=== PATIENT | female | born 1975 | race Caucasian/White ===

== ENCOUNTER 2017-03-02 15:33 | Emergency (ER) | payer SELFPAY ==
[2017-03-02] MEDS ORDERED: MORPHINE SULFATE 10 MG/ML INJ IV ONE ×2 (16:04→17:37)
[2017-03-02] MEDS ORDERED: KETOROLAC TROMETHAMINE INJ/PF 30 MG/1 ML SDV IV ONE (16:04)
[2017-03-02] MEDS ORDERED: ONDANSETRON HCL INJ/PF 4 MG/2 ML SDV IV ONE (16:04)
--- NOTE | 2017-03-02 16:12 | ER Document Report ---
ED General - General TRAVEL OUTSIDE OF THE [place] IN LAST 30 DAYS: No <PANKAJ MORSE - Last Filed: 03/02/17 23:27> <BETH LANTIGUA - Last Filed: 03/03/17 09:56> - General Chief Complaint: Back Pain Stated Complaint: BACK PAIN Time Seen by Provider: 03/02/17 15:59 - HPI Notes: Patient is a 41-year-old female with no significant past medical history who presents the ED complaining of left flank pain 4 hours that began suddenly. Patient states that she has not had any issues with her back in the past nor has she had any history of kidney stones. Patient states that the pain is primary to her left flank that radiates around toward the groin. Patient states that she cannot find a comfortable position. Patient states the pain is constant with intermittent increases in her pain. Patient states that she does have some nausea without any vomiting. She has not had any trouble urinating or any issues with her bowel movements. Patient has not been eating or drinking peers of the pain and intermittent nausea. Patient denies any drug allergies, smoking, IV drug use. She denies any previous surgical history or injections into her lower back. She denies any diabetes or cancer history. Denies any headache, fever, neck pain, URI, sore throat, chest pain, palpitations, syncope, cough, shortness of breath, wheeze, dyspnea, abdominal pain, vomiting/diarrhea, melena, hematochezia, urinary retention, dysuria, hematuria, vaginal discharge/odor/bleeding, loss of control of bowel or bladder , numbness/tingling, saddle anesthesia, muscle paralysis/weakness, or rash. ( PANKAJ MORSE) - Related Data Allergies/Adverse Reactions: No Known Allergies Allergy (Unverified 03/02/17 15:34) Past Medical History - Social History Smoking Status: Never Smoker Family History: Reviewed & Not Pertinent <PANKAJ MORSE - Last Filed: 03/02/17 23:27> Review of Systems <PANKAJ MORSE - Last Filed: 03/02/17 23:27> <BETH LANTIGUA - Last Filed: 03/03/17 09:56> - Review of Systems Notes: REVIEW OF SYSTEMS: CONSTITUTIONAL : Denies fever, chills, or sweats. Denies recent illness. EENT: Denies eye, ear, throat, or mouth pain or symptoms. Denies nasal or sinus congestion or discharge. Denies throat, tongue, or mouth swelling or difficulty swallowing. CARDIOVASCULAR: Denies chest pain. Denies palpitations or racing or irregular heart beat. Denies ankle edema. RESPIRATORY: Denies cough, cold, or chest congestion. Denies shortness of breath, difficulty breathing, or wheezing. GASTROINTESTINAL: see hpi. Denies abdominal pain or distention. Denies blood in vomitus, stools, or per rectum. Denies black, tarry stools. Denies constipation. GENITOURINARY: Denies difficulty urinating, painful urination, burning, frequency, blood in urine, or discharge. FEMALE GENITOURINARY: Denies vaginal bleeding, heavy or abnormal periods, irregular periods. Denies vaginal discharge or odor. MUSCULOSKELETAL: see hpi SKIN: Denies rash, lesions or sores. NEUROLOGICAL: Denies confusion or altered mental status. Denies passing out or loss of consciousness. Denies dizziness or lightheadedness. Denies headache. Denies weakness or paralysis or loss of use of either side. Denies problems with gait or speech. Denies sensory loss, numbness, or tingling. Denies seizures. ALL OTHER SYSTEMS REVIEWED AND NEGATIVE. Dictation was performed using [employer] voice recognition software (PANKAJ MORSE) Physical Exam <PANKAJ MORSE - Last Filed: 03/02/17 23:27> <BETH LANTIGUA - Last Filed: 03/03/17 09:56> - Vital signs Vitals: Temp Pulse Resp BP Pulse Ox 97.7 F 120 H 18 172/99 H 96 03/02/17 15:48 03/02/17 15:48 03/02/17 15:48 03/02/17 15:48 03/02/17 15:48 Notes: PHYSICAL EXAMINATION: GENERAL: Well-appearing, well-nourished and in no acute distress. Pt does appear to be uncomfortable and cannot find a comfortable position and hold left flank. HEAD: Atraumatic, normocephalic. EYES: Pupils equal round and reactive to light, extraocular movements intact, sclera anicteric, conjunctiva are normal. ENT: Nares patent and without discharge. oropharynx clear without exudates. No tonsilar hypertrophy or erythema. Moist mucous membranes. NECK: Normal range of motion, supple without lymphadenopathy LUNGS: Breath sounds clear to auscultation bilaterally and equal. No wheezes rales or rhonchi. HEART: Regular rate and rhythm without murmurs, rubs, gallops. ABDOMEN: Soft, nontender, nondistended abdomen. No guarding, no rebound. No masses appreciated. Normal bowel sounds present. No CVA tenderness bilaterally. Back: FROM. Strength 5+/5. No vertebral point tenderness, step-offs, ecchymosis , abrasion, laceration, erythema, or rash. Non-tender to palp of the soft tissue. SLR neg b/l. Pt ambulatory w/o difficulty. Musculoskeletal: FROM to passive/active. Strength 5+/5. No focal deficits. Extremities: No cyanosis, clubbing, or edema b/l. Peripheral pulses 2+. Capillary refill less than 3 seconds. NEUROLOGICAL: Cranial nerves grossly intact. Normal speech, normal gait. Normal sensory, motor exams. reflexes 2+ b/l. PSYCH: Normal mood, normal affect. SKIN: Warm, Dry, normal turgor, no rashes or lesions noted. (PANKAJ MORSE) Course - Laboratory Result Diagrams: 03/02/17 16:04 03/02/17 16:04 <PANKAJ MORSE - Last Filed: 03/02/17 23:27> - Laboratory Result Diagrams: 03/02/17 16:04 03/02/17 16:04 <BETH LANTIGUA - Last Filed: 03/03/17 09:56> - Re-evaluation Re-evalutation: 03/02/17 16:11 Labs ordered imaging ordered fluids, zofran, morphine, and toradol ordered. 03/02/17 18:[address] scan results: punctate stones rt ureter, 7x5mm stone left prox ureter. + 29 WBC's and small leuks on UA with UC pending. Pt was given additional pain medication and ordered Rocephin New vitals ordered [facility]. 03/02/17 19:02 Dr. Klein ([facility]) accepted patient to OR direct. Pt/family in agreement. 03/02/17 20:28 Pt has no new concerns or complaints. Vitals stable. Pt stable for transfer. (PANKAJ MORSE) 03/02/17 20:38 Pt evaluated, noted to be stable , EMS is starting antibiotics (BETH LANTIGUA) - Vital Signs Vital signs: Temp Pulse Resp BP Pulse Ox 97.9 F 114 H 20 150/102 H 97 03/02/17 20:58 03/02/17 20:58 03/02/17 20:58 03/02/17 20:58 03/02/17 20:58 - Laboratory Laboratory results interpreted by me: 03/02/17 03/02/17 03/02/17 16:04 16:04 16:20 WBC 11.8 H MCH 26.6 L Seg Neutrophils % 84.2 H Lymphocytes % 11.0 L Absolute Neutrophils 9.9 H Sodium 146.3 H Glucose 118 H Calcium 10.4 H AST 37 H ALT 58 H Urine Protein 30 H Urine Urobilinogen 2.0 H Ur Leukocyte Esterase SMALL H Discharge <PANKAJ MORSE - Last Filed: 03/02/17 23:27> <BETH LANTIGUA - Last Filed: 03/03/17 09:56> - Discharge Condition: Stable [facility] Referrals: CHATO VALENZUELA MD [Primary Care Provider] - Follow up as needed
[2017-03-02 16:13] LABS: ABSOLUTE EOSINOPHILS # (AUTO) 0.1 10^3/uL (0.0-0.6); ABSOLUTE LYMPHOCYTES (AUTO) 1.3 10^3/uL (0.5-4.7); ABSOLUTE MONOCYTES (AUTO) 0.5 10^3/uL (0.1-1.4); ABSOLUTE NEUT (AUTO) 9.9 10^3/uL (1.7-8.2); BASOPHILS % (AUTO) 0.3 % (0-2); EOSINOPHILS % (AUTO) 0.5 % (0-6); HEMATOCRIT 38.9 % (36.0-47.0); MEAN CORPUSCULAR HEMOGLOBIN 26.6 pg (27.0-33.4); MEAN CORPUSCULAR HGB CONC 33.4 g/dL (32.0-36.0); MEAN CORPUSCULAR VOLUME 80 fl (80-97); PLATELET COUNT 334 10^3/uL (150-450); RED BLOOD COUNT 4.89 10^6/uL (3.72-5.28); RED CELL DISTRIBUTION WIDTH 13.7 % (11.5-14.0); SEGMENTED NEUTROPHILS % (AUTO) 84.2 % (42-78); TOTAL CELLS COUNTED % (AUTO) 100 %; WHITE BLOOD COUNT 11.8 10^3/uL (4.0-10.5)
[2017-03-02] MEDS: NORMAL SALINE 1000 ML 1,000 ML IV PRN ×2 (16:20→17:33)
[2017-03-02 16:33] LABS: ALANINE AMINOTRANSFERASE 58 U/L (9-52); ALBUMIN 4.7 g/dL (3.5-5.0); ALKALINE PHOSPHATASE 65 U/L (38-126); ANION GAP 12 (5-19); ASPARTATE AMINO TRANSFERASE 37 U/L (14-36); BILIRUBIN,DIRECT 0.2 mg/dL (0.0-0.4); BILIRUBIN,TOTAL 0.2 mg/dL (0.2-1.3); BLOOD UREA NITROGEN 14 mg/dL (7-20); CALCIUM 10.4 mg/dL (8.4-10.2); CARBON DIOXIDE 29 mmol/L (22-30); CHLORIDE 105 mmol/L (98-107); GLUCOSE 118 mg/dL (75-110); POTASSIUM 4.4 mmol/L (3.6-5.0); SODIUM 146.3 mmol/L (137-145); TOTAL PROTEIN 7.5 g/dL (6.3-8.2)
[2017-03-02 16:40] LABS: APPEARANCE,URINE CLOUDY; BILIRUBIN,URINE NEGATIVE (NEGATIVE); CALCIUM OXALATE CRYSTALS,URINE MANY /HPF; COLOR,URINE YELLOW; GLUCOSE, URINE NEGATIVE (NEGATIVE); KETONES,URINE NEGATIVE (NEGATIVE); LEUKOCYTE ESTERASE,URINE SMALL (NEGATIVE); NITRITE,URINE NEGATIVE (NEGATIVE); PROTEIN,URINE 30 mg/dL (NEGATIVE); URINE SPECIFIC GRAVITY 1.039
--- NOTE | 2017-03-02 17:46 | RADIOLOGY REPORT (SQ) ---
EXAM DESCRIPTION: CT LTD RENAL STONE PROTOCOL ON COMPLETED DATE/TIME: 03/02/2017 5:36 pm REASON FOR STUDY: left flank pain COMPARISON: None. TECHNIQUE: CT scan of the abdomen and pelvis performed without intravenous or oral contrast. Images reviewed with lung, soft tissue, and bone windows. Reconstructed coronal and sagittal MPR images revi ewed. All images stored on PACS. All CT scanners at this facility use dose modulation, iterative reconstruction, and/or weight based d osing when appropriate to reduce radiation dose to as low as reasonably achievable (ALARA). [facility]: Dose Right [facility]: CareDose [facility]: Dose Right [facility]: Teradose 4D [facility]: Smart Technologies RADIATION DOSE: CT Rad equipment meets quality standard of care and radiation dose reduction techniq ues were employed. CTDIvol: 15.6 mGy. DLP: 902 mGy-cm.mGy. LIMITATIONS: None. FINDINGS: LOWER CHEST: No significant findings. No nodules or infiltrates. NON-CONTRASTED LIVER, SPLEEN, ADRENALS: Evaluation limited by lack of IV contrast. No identified sign ificant masses. Severe diffuse hepatic steatosis with areas of fatty sparing. PANCREAS: No masses. No peripancreatic inflammatory changes. GALLBLADDER: No identified stones by CT criteria. No inflammatory changes to suggest cholecystitis. RIGHT KIDNEY AND URETER: No suspicious masses. Assessment limited by lack of IV contrast. Punctate calculus lower pole. No hydronephrosis or hydroureter. LEFT KIDNEY AND URETER: No suspicious masses. Assessment limited by lack of IV contrast. Multiple p unctate calculi. Mild left hydronephrosis secondary to a 7 x 5 mm calculus within the proximal uret er. AORTA AND RETROPERITONEUM: No aneurysm. No retroperitoneal masses or adenopathy. BOWEL AND PERITONEAL CAVITY: No obvious masses or inflammatory changes. No free fluid. APPENDIX: Normal. PELVIS, BLADDER, AND ABDOMINAL WALL:No abnormal masses. No free fluid. Bladder normal. BONES: No significant findings. OTHER: No other significant finding. IMPRESSION: BILATERAL NEPHROLITHIASIS WITH MILD LEFT HYDRONEPHROSIS SECONDARY TO 7 MM CALCULUS WITHI N THE PROXIMAL URETER. HEPATIC STEATOSIS. COMMENT: Quality ID # [id number]: Final reports with documentation of one or more dose reduction techniques (e.g., Automated exposure control, adjustment of the mA and/or kV according to patient size, use of iterative reconstruction technique) TECHNICAL DOCUMENTATION: JOB ID: [id number] [facility] EHR- All Rights Reserved
[2017-03-02] MEDS ORDERED: NORMAL SALINE 1000 ML 1,000 ML IV PRN (18:24)
[2017-03-02] MEDS ORDERED: CEFTRIAXONE 1 GM/D5W RTU 1 GM/50 ML RTUPB IV ONE (20:00)
[2017-03-02] MEDS ORDERED: CEFTRIAXONE INJ 1000 MG VIAL ONE (20:45)
[2017-03-02 20:59] VITALS: BP 150/102
== END 2017-03-02 21:00 | disposition short-term general hospital (02) ==
LOC: ER 15:33
DX: M54.9 Dorsalgia, unspecified (principal); R10.9 Unspecified abdominal pain; R11.0 Nausea
CPT/HCPCS: 36415; 87086; 84702; 85025; 87088; 80053; 81001; 76380; J1885; J2270; J2405; J7030; J0696

== ENCOUNTER 2017-03-06 23:54 | Emergency (ER) | payer SELFPAY ==
[2017-03-07] MEDS ORDERED: OXYCODONE-ACETAMINOPHEN 5-325 MG TABLET PO ONE ×2 (00:41→05:46)
[2017-03-07] MEDS ORDERED: ONDANSETRON 4 MG TAB.RAPDIS PO ONE (00:41)
[2017-03-07] MEDS ORDERED: KETOROLAC TROMETHAMINE 60 MG/2 ML SDV IM ONE (00:41)
--- NOTE | 2017-03-07 00:43 | ER Document Report ---
ED Medical Screen (RME) - General Chief Complaint: Possible Kidney Stone Stated Complaint: FLANK PAIN Time Seen by Provider: 03/07/17 00:37 Notes: 41-year-old female, chief complaint of severe abdominal pain radiating around to her flank on the left side. She states she had a stent placed on Monday at [facility] for a 7 mm kidney stone, states she was doing well at home until her cat jumped on her abdomen, she reports sharp severe pain since then. She denies vomiting, fever. TRAVEL OUTSIDE OF THE [place] IN LAST 30 DAYS: No - Related Data Allergies/Adverse Reactions: No Known Allergies Allergy (Unverified 03/02/17 15:34) Past Medical History Renal/ Medical History: Denies: Hx Peritoneal Dialysis Physical Exam - Vital signs Vitals: Temp Pulse Resp BP Pulse Ox 98.3 F 121 H 24 H 179/111 H 99 03/07/17 00:27 03/07/17 00:27 03/07/17 00:27 03/07/17 00:27 03/07/17 00:27 - General General appearance: Anxious In distress: Moderate - Patient pacing around, appears to be in pain - Abdominal Tenderness: Other - Very difficult to examine because patient is in pain and cannot hold still Course - Vital Signs Vital signs: Temp Pulse Resp BP Pulse Ox 98.3 F 121 H 24 H 179/111 H 99 03/07/17 00:27 03/07/17 00:27 03/07/17 00:27 03/07/17 00:27 03/07/17 00:27
[2017-03-07 01:24] LABS: ABSOLUTE BASOPHILS # (AUTO) 0.1 10^3/uL (0.0-0.2); ABSOLUTE EOSINOPHILS # (AUTO) 0.1 10^3/uL (0.0-0.6); ABSOLUTE MONOCYTES (AUTO) 0.5 10^3/uL (0.1-1.4); ABSOLUTE NEUT (AUTO) 5.5 10^3/uL (1.7-8.2); BASOPHILS % (AUTO) 0.7 % (0-2); EOSINOPHILS % (AUTO) 1.1 % (0-6); HEMATOCRIT 36.3 % (36.0-47.0); LYMPHOCYTES % (AUTO) 13.6 % (13-45); MEAN CORPUSCULAR VOLUME 79 fl (80-97); MONOCYTES % (AUTO) 6.4 % (3-13); PLATELET COUNT 298 10^3/uL (150-450); RED BLOOD COUNT 4.61 10^6/uL (3.72-5.28); RED CELL DISTRIBUTION WIDTH 13.6 % (11.5-14.0); SEGMENTED NEUTROPHILS % (AUTO) 78.2 % (42-78); TOTAL CELLS COUNTED % (AUTO) 100 %; WHITE BLOOD COUNT 7.1 10^3/uL (4.0-10.5)
[2017-03-07 01:41] LABS: ANION GAP 11 (5-19); BLOOD UREA NITROGEN 16 mg/dL (7-20); CALCIUM 10.1 mg/dL (8.4-10.2); CARBON DIOXIDE 29 mmol/L (22-30); CHLORIDE 105 mmol/L (98-107); GLUCOSE 118 mg/dL (75-110); POTASSIUM 4.2 mmol/L (3.6-5.0); SODIUM 144.9 mmol/L (137-145)
[2017-03-07 01:42] LABS: APPEARANCE,URINE CLOUDY; BILIRUBIN,URINE NEGATIVE (NEGATIVE); COLOR,URINE YELLOW; GLUCOSE, URINE NEGATIVE (NEGATIVE); KETONES,URINE NEGATIVE (NEGATIVE); LEUKOCYTE ESTERASE,URINE SMALL (NEGATIVE); NITRITE,URINE NEGATIVE (NEGATIVE); PROTEIN,URINE 100 mg/dL (NEGATIVE); URINE SPECIFIC GRAVITY 1.021; UROBILINOGEN,URINE NEGATIVE mg/dL (<2.0)
--- NOTE | 2017-03-07 03:33 | RADIOLOGY REPORT (SQ) ---
EXAM DESCRIPTION: ACUTE ABDOMEN SERIES CLINICAL HISTORY: severe sudden abdominal pain COMPARISON: None. FINDINGS: Single view of the chest with 2 views of the abdomen. Cardiomediastinal silhouette has normal size and contour. No consolidation, pneumothorax, pleural effusion. Low lung volumes. No acute osseous abnormalities. 2 views of the abdomen demonstrate left double-J ureteral stent. Air-filled loops of nondilated large and small bowel. No definite free intraperitoneal air. 2 calcifications in the pelvis could represent phleboliths or may represent calcifications within the ureter. No acute osseous abnormalities. IMPRESSION: 1. No acute pulmonary process. 2. Nonobstructive bowel gas pattern. 3. Calcification along the course of the left ureteral stent may represent a ureteral calculus.
--- NOTE | 2017-03-07 04:51 | ER Document Report ---
ED General - General Chief Complaint: Possible Kidney Stone Stated Complaint: FLANK PAIN Time Seen by Provider: 03/07/17 00:37 Notes: Patient is a pleasant 38-year-old female presents with complaint of left-sided flank pain. She does have a ureteral stent that was placed recently. She does watch the left side. She is on antibiotics for a infection. She says today her cat jumped on her stomach after that she had severe pain left side. The pain is now improved. She says that she was prescribed Ultram by her automotive parts counter person however Ultram does not seem to be helping. He was prescribed Ultram because the [place] because of a headache. She denies any fevers. No vomiting. No diarrhea. No other complaints at this time. She has an appointment with her urologist on Monday to have surgery to remove the stent and stone. TRAVEL OUTSIDE OF THE [place] IN LAST 30 DAYS: No - Related Data Allergies/Adverse Reactions: No Known Allergies Allergy (Unverified 03/02/17 15:34) Past Medical History - Social History Smoking Status: Unknown if Ever Smoked Frequency of alcohol use: None Drug Abuse: None Family History: Reviewed & Not Pertinent Patient has suicidal ideation: No Patient has homicidal ideation: No Renal/ Medical History: Denies: Hx Peritoneal Dialysis Review of Systems - Review of Systems Notes: My Normal Review Basic REVIEW OF SYSTEMS: CONSTITUTIONAL : Denies fever, chills, or sweats. Denies recent illness. RESPIRATORY: Denies cough, cold, or chest congestion. Denies shortness of breath, difficulty breathing, or wheezing. GASTROINTESTINAL: Left sided abdominal pain. Denies nausea, vomiting, or diarrhea. GENITOURINARY: Left flank pain. MUSCULOSKELETAL: Denies neck or back pain or joint pain or swelling. SKIN: Denies rash or skin lesions. NEUROLOGICAL: Denies altered mental status or loss of consciousness. Denies headache. Denies weakness or paralysis or loss of use of either side. Denies problems with gait or speech. Denies sensory or motor loss. ALL OTHER SYSTEMS REVIEWED AND NEGATIVE. Physical Exam - Vital signs Vitals: Temp Pulse Resp BP Pulse Ox 98.3 F 121 H 24 H 179/111 H 99 03/07/17 00:27 03/07/17 00:27 03/07/17 00:27 03/07/17 00:27 03/07/17 00:27 - Notes Notes: General Appearance: Well nourished, alert, cooperative, no acute distress, no obvious discomfort. Vitals: reviewed, See vital signs table. Eyes: PERRL, EOMI, Conjuctiva clear Mouth: No decreasd moisture Throat: No tonsillar inflammation, No airway obstruction, No lymphadenopathy Neck: Supple, no neck tenderness, No thyromegaly Lungs: No wheezing, No rales, No rhonci, No accessory muscle use, good air exchange bilaterally. Heart: Normal rate, Regular rythm, No murmur, no rub Abdomen: Normal BS, soft, No rigidity, very mild left-sided abdominal tenderness to palpation. Remainder of abdomen is nontender and very soft. Neck: No tenderness palpation over the back. Extremities: good pulses in all extremities, Skin: warm, dry, appropriate color, no rash Neuro: speech clear, oriented x 3, normal affect, responds appropriately to questions. Course - Re-evaluation Re-evalutation: 03/07/17 07:06 Patient's pain resolved after receiving medications in triage. She looks well. Abdomen is very soft and benign. I do not feel that she needs any further imaging. X-ray of the abdomen did not show any free air. She looks well and has a close follow-up appointment with her urologist this Monday. I strongly encouraged her return to ER immediately if she has worsening pain, vomiting, or fevers. I will prescribe her Percocet as the Ultram is not really helping her pain at home. She did tolerate Percocet well when she received here. Patient encouraged to only take Percocet when the pain is severe. I did talk to her about the risks of sedation and dependency with opiate medications and therefore the only taken when absolutely needed. Patient shows understanding of this will be discharged home. Dictation of this chart was performed using voice recognition software; therefore, there may be some unintended grammatical errors. - Vital Signs Vital signs: Temp Pulse Resp BP Pulse Ox 98.0 F 85 20 145/94 H 97 03/07/17 05:39 03/07/17 05:39 03/07/17 05:39 03/07/17 05:39 03/07/17 05:39 - Laboratory Result Diagrams: 03/07/17 01:10 03/07/17 01:10 Laboratory results interpreted by me: 0103/07/17 03/07/17 00:50 01:10 01:10 MCV 79 L MCH 26.0 L Seg Neutrophils % 78.2 H Glucose 118 H Urine Protein 100 H Urine Blood LARGE H Ur Leukocyte Esterase SMALL H Discharge - Discharge Clinical Impression: Kidney stone on left side Condition: Good Disposition: HOME, SELF-CARE Instructions: Oral Narcotic Medication ([facility]) Additional Instructions: PLease follow up with your urologist on Monday as scheduled. Please stop taking the Tramadol and try the Percocet. Please do not drive or operate machinery when taking the Percocet. Please return to the ER immediately if you have worsneing pain, vomiting, fevers, or feel unwell. Prescriptions: Oxycodone HCl/Acetaminophen [Percocet 5-325 mg Tablet] 1 tab PO Q4H PRN #20 tablet PRN Reason: Forms: Return to Work
[2017-03-07 06:06] VITALS: BP 145/94
== END 2017-03-07 06:00 | disposition home or self-care (01) ==
LOC: ER 23:54
DX: N20.0 Calculus of kidney (principal); B99.9 Unspecified infectious disease; Z98.890 Other specified postprocedural states
CPT/HCPCS: 99284; 96372; 36415; 85025; 81025; 80048; 81001; 74022; J1885; S0119

== ENCOUNTER 2018-11-21 07:25 | Emergency (ER) | payer SELFPAY ==
[2018-11-21 08:46] LABS: ABSOLUTE BASOPHILS # (AUTO) 0.1 10^3/uL (0.0-0.2); ABSOLUTE EOSINOPHILS # (AUTO) 0.1 10^3/uL (0.0-0.6); ABSOLUTE LYMPHOCYTES (AUTO) 1.4 10^3/uL (0.5-4.7); ABSOLUTE MONOCYTES (AUTO) 0.6 10^3/uL (0.1-1.4); ABSOLUTE NEUT (AUTO) 5.2 10^3/uL (1.7-8.2); BASOPHILS % (AUTO) 0.8 % (0-2); EOSINOPHILS % (AUTO) 1.1 % (0-6); HEMOGLOBIN 12.3 g/dL (12.0-15.5); LYMPHOCYTES % (AUTO) 18.8 % (13-45); MEAN CORPUSCULAR HEMOGLOBIN 24.3 pg (27.0-33.4); MEAN CORPUSCULAR HGB CONC 32.3 g/dL (32.0-36.0); MEAN CORPUSCULAR VOLUME 75 fl (80-97); MONOCYTES % (AUTO) 8.1 % (3-13); PLATELET COUNT 357 10^3/uL (150-450); RED BLOOD COUNT 5.05 10^6/uL (3.72-5.28); RED CELL DISTRIBUTION WIDTH 15.6 % (11.5-14.0); SEGMENTED NEUTROPHILS % (AUTO) 71.2 % (42-78); TOTAL CELLS COUNTED % (AUTO) 100 %; WHITE BLOOD COUNT 7.3 10^3/uL (4.0-10.5)
[2018-11-21 08:50] LABS: APPEARANCE,URINE CLEAR; BILIRUBIN,URINE NEGATIVE (NEGATIVE); COLOR,URINE YELLOW; GLUCOSE, URINE NEGATIVE (NEGATIVE); KETONES,URINE NEGATIVE (NEGATIVE); LEUKOCYTE ESTERASE,URINE TRACE (NEGATIVE); NITRITE,URINE NEGATIVE (NEGATIVE); PROTEIN,URINE NEGATIVE (NEGATIVE); URINE SPECIFIC GRAVITY 1.008; UROBILINOGEN,URINE NEGATIVE mg/dL (<2.0)
--- NOTE | 2018-11-21 09:02 | ER Document Report ---
ED General - General Chief Complaint: Flank Pain Stated Complaint: LEFT FLANK PAIN Time Seen by Provider: 11/21/18 09:00 Primary Care Provider: CHATO VALENZUELA MD [Primary Care Provider] - Follow up as needed Mode of Arrival: Ambulatory Information source: Patient Notes: This 43-year-old female with history of kidney stones presents emergency department with complaints of left sided flank pain that started Monday. Reports she took Tylenol without relief of symptoms. Denies fever vomiting diarrhea. Denies trauma. Denies pain with void. Patient reports the last time she had kidney stones was 2 years ago when she had lithotripsy at that time. Her urologist is in [place]. TRAVEL OUTSIDE OF THE [place] IN LAST 30 DAYS: No - HPI Onset: Other Onset/Duration: Persistent Quality of pain: Achy Associated symptoms: None Exacerbated by: Denies Relieved by: Denies Similar symptoms previously: Yes Recently seen / treated by doctor: No - Related Data Allergies/Adverse Reactions: vicoden Allergy (Uncoded 11/21/18 08:29) Past Medical History - General Information source: Patient - Social History Smoking Status: Never Smoker Chew tobacco use (# tins/day): No Drug Abuse: None Lives with: Family Family History: Reviewed & Not Pertinent Patient has suicidal ideation: No Patient has homicidal ideation: No - Past Medical History Cardiac Medical History: Reports: Hx Hypertension Neurological Medical History: Reports: Hx Migraine Renal/ Medical History: Reports: Hx Kidney Stones. Denies: Hx Peritoneal Dialysis GI Medical History: Reports: Hx Gastroesophageal Reflux Disease Past Surgical History: Reports: Hx Gynecologic Surgery - lazer surgery, Hx Tubal Ligation, Other - Lithotripsy Review of Systems - Review of Systems Notes: Review HPI for review of systems., All other systems negative Physical Exam - Vital signs Vitals: Temp Pulse Resp BP Pulse Ox 97.6 F 90 18 173/95 H 96 11/21/18 07:36 11/21/18 07:36 11/21/18 07:36 11/21/18 07:36 11/21/18 07:36 - Notes Notes: PHYSICAL EXAMINATION: GENERAL: Well-appearing and in no acute distress HEAD: Atraumatic, normocephalic. EYES: extraocular movements intact, sclera anicteric, conjunctiva are normal. ENT: nares patent, Moist mucous membranes. NECK: Normal range of motion, supple without lymphadenopathy LUNGS: CTAB and equal. No wheezes rales or rhonchi. HEART: Regular rate and rhythm without murmurs ABDOMEN: Soft, no tenderness. No guarding, no rebound BACK: Denies pain since toradol EXTREMITIES: Normal range of motion, no pitting edema. No cyanosis. NEUROLOGICAL: Cranial nerves grossly intact. Normal sensory/motor exams. PSYCH: Normal mood, normal affect. SKIN: Warm, Dry, normal turgor, no rashes or lesions noted Course - Re-evaluation Re-evalutation: 11/21/18 09:14 43-year-old female presents emergency department with complaints of left-sided flank pain since Monday. Reports history of kidney stones. Labs unremarkable UA without blood. CT shows bilateral nonobstructive nephrolithiasis without evidence ofhydronephrosis or hydroureter, Hepatic steatosis. Patient instructed on all results. Reports she feels better after Toradol. Instructed to follow-up with your urologist to monitor and was given a CD copy of her CT. 11/21/18 08:29 11/21/18 08:29 MCV 75 fl (80-97) L 11/21/18 08:29 MCH 24.3 pg (27.0-33.4) L 11/21/18 08:29 MCHC 32.3 g/dL (32.0-36.0) 11/21/18 08:29 RDW 15.6 % (11.5-14.0) H 11/21/18 08:29 Seg Neutrophils % 71.2 % (42-78) 11/21/18 08:29 Chloride 103 mmol/L (98-107) 11/21/18 08:29 Carbon Dioxide 28 mmol/L (22-30) 11/21/18 08:29 Anion Gap 9 (5-19) 11/21/18 08:29 Est GFR ( Amer) > 60 (>60) 11/21/18 08:29 Glucose 89 mg/dL (75-110) 11/21/18 08:29 Calcium 10.1 mg/dL (8.4-10.2) 11/21/18 08:29 Total Bilirubin 0.3 mg/dL (0.2-1.3) 11/21/18 08:29 AST 27 U/L (14-36) 11/21/18 08:29 Alkaline Phosphatase 61 U/L (38-126) 11/21/18 08:29 Total Protein 7.8 g/dL (6.3-8.2) 11/21/18 08:29 Albumin 4.5 g/dL (3.5-5.0) 11/21/18 08:29 Lipase 159.7 U/L (23-300) 11/21/18 08:29 Serum HCG, Qual NEGATIVE (NEGATIVE) 11/21/18 08:29 Urine Color YELLOW 11/21/18 08:29 Urine Appearance CLEAR 11/21/18 08:29 Urine pH 7.0 (5.0-9.0) 11/21/18 08:29 Ur Specific [place] 1.008 11/21/18 08:29 Urine Protein NEGATIVE mg/dL (NEGATIVE) 11/21/18 08:29 Urine Glucose (UA) NEGATIVE mg/dL (NEGATIVE) 11/21/18 08:29 Urine Ketones NEGATIVE mg/dL (NEGATIVE) 11/21/18 08:29 Urine Blood NEGATIVE (NEGATIVE) 11/21/18 08:29 Urine Nitrite NEGATIVE (NEGATIVE) 11/21/18 08:29 Ur Leukocyte Esterase TRACE (NEGATIVE) H 11/21/18 08:29 Urine WBC (Auto) 1 /HPF 11/21/18 08:29 Urine RBC (Auto) 0 /HPF 11/21/18 08:29 11/21/18 09:59 Abdomen/Pelvis CT 11/21/18 09:01 IMPRESSION: 1. Bilateral nonobstructive nephrolithiasis without evidence of hydronephrosis or hydroureter. 2. Hepatic steatosis. - Vital Signs Vital signs: Temp Pulse Resp BP Pulse Ox 99.0 F 74 18 133/82 H 100 11/21/18 10:14 11/21/18 10:14 11/21/18 10:14 11/21/18 10:14 11/21/18 10:14 - Laboratory Result Diagrams: 11/21/18 08:29 11/21/18 08:29 Laboratory results interpreted by me: 11/21/18 11/21/18 08:29 08:29 MCV 75 L MCH 24.3 L RDW 15.6 H Ur Leukocyte Esterase TRACE H - Diagnostic Test Radiology reviewed: Image reviewed Discharge - Discharge Clinical Impression: Flank pain Condition: Stable Disposition: HOME, SELF-CARE Instructions: Flank Pain ([facility]), Use of [id number] Ibuprofen ([facility]), Toradol Injection ([facility]) Additional Instructions: *You have been evaluated for flank pain, bilateral nonobstructing kidney stones *Take ibuprofen as indicated *Push fluids *Follow up with a primary care provider or urologist within one week for recheck *Return to ED for worsening condition, changes, needs, fever, concerns Monitor your blood pressure. Your blood pressure was elevated today. This may be because you were anxious, in pain or because you need medication. It is important to follow up with your primary care provider for full evaluation. Forms: Elevated Blood Pressure Referrals: CHATO VALENZUELA MD [Primary Care Provider] - Follow up as needed
[2018-11-21 09:09] LABS: ALBUMIN 4.5 g/dL (3.5-5.0); ALKALINE PHOSPHATASE 61 U/L (38-126); ANION GAP 9 (5-19); ASPARTATE AMINO TRANSFERASE 27 U/L (14-36); BILIRUBIN,DIRECT 0.1 mg/dL (0.0-0.4); BILIRUBIN,TOTAL 0.3 mg/dL (0.2-1.3); BLOOD UREA NITROGEN 11 mg/dL (7-20); CALCIUM 10.1 mg/dL (8.4-10.2); CARBON DIOXIDE 28 mmol/L (22-30); CHLORIDE 103 mmol/L (98-107); GLUCOSE 89 mg/dL (75-110); POTASSIUM 4.3 mmol/L (3.6-5.0); TOTAL PROTEIN 7.8 g/dL (6.3-8.2)
[2018-11-21] MEDS ORDERED: KETOROLAC TROMETHAMINE INJ/PF 30 MG/1 ML SDV IV ONE (09:32)
--- NOTE | 2018-11-21 09:59 | RADIOLOGY REPORT (SQ) ---
EXAM DESCRIPTION: CT ABD/PELVIS NO ORAL OR IV COMPLETED DATE/TIME: 11/21/2018 9:39 am REASON FOR STUDY: flank pain COMPARISON: 03/02/2017 TECHNIQUE: CT scan of the abdomen and pelvis performed without intravenous or oral contrast. Images reviewed with lung, soft tissue, and bone windows. Reconstructed coronal and sagittal MPR images revi ewed. All images stored on PACS. All CT scanners at this facility use dose modulation, iterative reconstruction, and/or weight based d osing when appropriate to reduce radiation dose to as low as reasonably achievable (ALARA). [facility]: Dose Right [facility]: CareDose [facility]: Dose Right [facility]: Teradose 4D [facility]: Openbucks RADIATION DOSE: CT Rad equipment meets quality standard of care and radiation dose reduction techniq ues were employed. CTDIvol: 15.2 mGy. DLP: 822 mGy-cm.mGy. LIMITATIONS: None. FINDINGS: LOWER CHEST: No significant findings. No nodules or infiltrates. NON-CONTRASTED LIVER, SPLEEN, ADRENALS: Evaluation limited by lack of IV contrast. Hepatic steatosis . No identified significant masses. PANCREAS: No masses. No peripancreatic inflammatory changes. GALLBLADDER: No identified stones by CT criteria. No inflammatory changes to suggest cholecystitis. RIGHT KIDNEY AND URETER: No suspicious masses. Assessment limited by lack of IV contrast. Tiny nono bstructive calculi. No hydronephrosis or hydroureter. LEFT KIDNEY AND URETER: No suspicious masses. Assessment limited by lack of IV contrast. There are multiple small nonobstructive calculi in the left kidney. No hydronephrosis or hydroureter. AORTA AND RETROPERITONEUM: No aneurysm. No retroperitoneal masses or adenopathy. BOWEL AND PERITONEAL CAVITY: No obvious masses or inflammatory changes. No free fluid. APPENDIX: Normal. PELVIS, BLADDER, AND ABDOMINAL WALL:No abnormal masses. Calcifications in the left adnexa, which are distinct from the ureter. No free fluid. Bladder normal. BONES: No significant findings. OTHER: No other significant finding. IMPRESSION: 1. Bilateral nonobstructive nephrolithiasis without evidence of hydronephrosis or hydrou reter. 2. Hepatic steatosis. COMMENT: Quality ID # [id number]: Final reports with documentation of one or more dose reduction techniques (e.g., Automated exposure control, adjustment of the mA and/or kV according to patient size, use of iterative reconstruction technique) TECHNICAL DOCUMENTATION: JOB ID: [id number] [employer] [facility] [employer]- All Rights Reserved Reading location - IP/workstation name: [email or web address]
[2018-11-21 10:27] VITALS: BP 133/82
== END 2018-11-21 10:28 | disposition home or self-care (01) ==
LOC: ER 07:25
DX: R10.9 Unspecified abdominal pain (principal); I10 Essential (primary) hypertension; Z87.442 Personal history of urinary calculi; Z98.51 Tubal ligation status
CPT/HCPCS: 99284; 96374; 36415; 83690; 84703; 85025; 80053; 81001; 74176; J1885